=== PATIENT | female | born 1970 | race Two or more races ===

== ENCOUNTER 2019-06-26 16:35 | Emergency (ER) | payer OTHER ==
[~2019-06-26] VITALS: Ht 165.1 cm; Wt 103.0 kg
[2019-06-26 16:41] VITALS: BP 147/101
[2019-06-26] MEDS ORDERED: PROPARACAINE OPHTH 0.5%, 15ML ONE (17:04)
[2019-06-26] MEDS ORDERED: HYDROCORTISONE CRM 1%, 30GM TP ONE (18:00)
== END 2019-06-26 18:46 | disposition home or self-care (01) ==
LOC: ED 18:40
DX: H10.213 Acute toxic conjunctivitis, bilateral (principal); Z72.9 Problem related to lifestyle, unspecified; F17.200 Nicotine dependence, unspecified, uncomplicated; T78.40XA Allergy, unspecified, initial encounter
CPT/HCPCS: 99282

== ENCOUNTER 2020-02-08 16:53 | Emergency (ER) | payer MEDICAID, OTHER ==
[~2020-02-08] VITALS: Ht 165.1 cm; Wt 100.0 kg
[2020-02-08 17:18] VITALS: BP 132/82
[2020-02-08] MEDS ORDERED: KETOROLAC 30 MG/1 ML ONE (17:51)
[2020-02-08] MEDS ORDERED: METHOCARBAMOL 750 MG TABLET ONE (17:51)
[2020-02-08] MEDS ORDERED: METHOCARBAMOL 750 MG TABLET PO ONE (18:00)
[2020-02-08] MEDS ORDERED: KETOROLAC 30 MG/1 ML IM ONE (18:00)
== END 2020-02-08 18:59 | disposition home or self-care (01) ==
LOC: ED 18:45
DX: S39.012A Strain of muscle, fascia and tendon of lower back, initial encounter (principal); G89.29 Other chronic pain; M54.32 Sciatica, left side; X58.XXXA Exposure to other specified factors, initial encounter; Y93.89 Activity, other specified; Y92.89 Other specified places as the place of occurrence of the external cause; Y99.8 Other external cause status
CPT/HCPCS: 96372; 99283; J1885; J7512

== ENCOUNTER 2020-02-16 10:36 | Emergency (ER) | payer MEDICAID ==
[~2020-02-16] VITALS: Ht 162.6 cm; Wt 102.2 kg
--- NOTE | 2020-02-16 10:55 | NUR ---
Assumed care of patient. C/O blood from rectum and burning pain. Upon rectal exam by MD, small painful internal hemorroids at the 9 O'clock position. RN present in room. Will continue to monitor.
[2020-02-16 11:27] VITALS: BP 156/101
--- NOTE | 2020-02-16 11:27 | NUR ---
Patient/Caregiver given discharge instructions and they have confirmed that they understand the instructions. Patient ambulatory with steady gait. RN stressed importance of following up with [facility]p regarding BP. Provided patient with list of local PCPs.
== END 2020-02-16 11:34 | disposition home or self-care (01) ==
LOC: ED 10:54
DX: K64.8 Other hemorrhoids (principal)
CPT/HCPCS: 99282

== ENCOUNTER 2020-03-13 18:47 | Emergency (ER) | payer MEDICAID ==
[~2020-03-13] VITALS: Ht 165.1 cm; Wt 102.3 kg
[2020-03-13 18:50] VITALS: BP 150/93
== END 2020-03-13 19:40 | disposition home or self-care (01) ==
LOC: ED 19:19
DX: M54.16 Radiculopathy, lumbar region (principal); M54.42 Lumbago with sciatica, left side; G89.29 Other chronic pain; F17.200 Nicotine dependence, unspecified, uncomplicated
CPT/HCPCS: 99283

== ENCOUNTER 2020-07-01 15:15 | Emergency (ER) | payer MEDICAID ==
[~2020-07-01] VITALS: Ht 167.6 cm; Wt 106.6 kg
[2020-07-01 15:19] VITALS: BP 203/130
[2020-07-01] MEDS ORDERED: HYDROcodone/APAP 5/325 TABLET PO ONE (15:30)
[2020-07-01] MEDS ORDERED: HYDROcodone/APAP 5/325 TABLET ONE (16:30)
--- NOTE | 2020-07-01 16:32 | NUR ---
PT ELOPED PRIOR TO BEING MEDICATED. SHYAM MYERS Addendum: 07/01/20 at 1648 by MINGALLS NO ANSWER X1, PT REPORTEDLY ELOPED PRIOR TO BEING MEDICATED. SHYAM MYERS
--- NOTE | 2020-07-01 16:46 | NUR ---
NO ANSWER X2
[2020-07-01] MEDS ORDERED: PLEASE ENTER HEIGHT MC SCH (17:00)
--- NOTE | 2020-07-01 17:02 | NUR ---
NOT IN LOBBY X3, PT ELOPED.
== END 2020-07-01 18:27 | disposition left against medical advice (07) ==
LOC: ED 15:18
DX: K08.89 Other specified disorders of teeth and supporting structures (principal)
CPT/HCPCS: 99281